=== PATIENT | male | born 1950 | race Caucasian/White ===

== ENCOUNTER 2016-10-17 07:27 | Outpatient (CLI) | payer MEDICARE ==
[~2016-10-17] VITALS: Ht 177.8 cm; Wt 78.6 kg
[2016-10-17 08:04] LABS: BASOPHILS 0.1 % (0.0-2.0); EOSINOPHILS 0.3 % (0-7); HEMATOCRIT 26.9 % (42.0-54.0); HEMOGLOBIN 8.2 g/dL (13.5-17.5); IMMATURE GRANULOCYTES 0.3 % (0-5); LYMPHOCYTES 4.9 % (15-50); MCH 21.2 pg (26.0-34.0); MCHC 30.5 g/dL (31.0-37.0); MCV 69.5 fL (80.0-100.0); MEAN PLATELET VOLUME 9.3 fL (7.4-10.4); MONOCYTES 11.3 % (2-11); NEUTROPHILS 83.1 % (40-80); PLATELET COUNT 594 10x3/uL (130-400); RBC 3.87 10x6/uL (4.20-6.10); RDW 18.2 % (11.5-14.5); WBC 13.1 10x3/uL (4.8-10.8)
[2016-10-17 08:17] LABS: APTT 35.4 SECONDS (22.8-39.4); INR 1.18 (0.85-1.17); PROTIME 14.9 SECONDS (11.6-15.0)
[2016-10-17 08:18] VITALS: BP 119/73; Ht 177.8 cm; Wt 78.6 kg
[2016-10-17 08:18] LABS: CALC OSMOLALITY 258 mosm/kg (275-300); CALCIUM 9.5 mg/dL (8.5-10.1); CARBON DIOXIDE 28.4 mmol/L (21.0-32.0); CHLORIDE - SERUM 90 mmol/L (98-107); CREATININE - SERUM 0.9 mg/dL (0.6-1.3); GLUCOSE 109 mg/dL (74-106); POTASSIUM - SERUM 3.7 mmol/L (3.5-5.1); SODIUM 128 mmol/L (136-145); UREA NITROGEN 15 mg/dL (7-18); eGFR NON AFRICAN AMERICAN 89 mL/min (90-120)
--- NOTE | 2016-10-17 11:17 | NUR ---
1100 BACK FROM LIVER BIOPSY. RT ABDOMEN DRESSING C/D/I NO BLEEDING. EXPLAIND RISK FOR BLEEDING. EXPLAINED NEEDS 2 UNITS OF BLOOD AND TOLD S/S OF BLOOD REACTIONS AND SHEET GIVEN ON BLOOD TRANSFUSION REACTION.
--- NOTE | 2016-10-17 11:42 | NUR ---
113O CALLED TO SEE IF BLOOD IS READY NOT YET.
--- NOTE | 2016-10-17 12:59 | NUR ---
1215 BLOOD CHECKED WITH 2 NURSES SWITCHED IV TO N/S IV RT ARM NO REDNESS OR SWELLING. SLEEPY FROM [facility].
--- NOTE | 2016-10-17 13:22 | NUR ---
1300 TOLERATING BLOOD WITHOUT S/S OF BLOOD REACTIONS NOTED IV RT ARM NO REDNESS OR SWELLING.
--- NOTE | 2016-10-17 15:17 | NUR ---
1400 RT ABDOMEN DRESSING C/D/I NO BLEEDING. BLOOD INFUSING WITHOUT S/S OF ADVERSE EFFECTS.
--- NOTE | 2016-10-17 15:17 | NUR ---
1445 RT ABDOMEN DRESSING C/D/I NO BLEEDING. 1ST UNIT OF BLOOD COMPLETED FLUSHED WITH NORMAL SALINE.
--- NOTE | 2016-10-17 18:33 | NUR ---
8827 2ND UNIT OF BLOOD CHECKED BY 2 RNS RT ARM IV SITE NO REDNESS OR SWELLING. BLOOD HUNG WITH NEW TUBING AND STARTED.
--- NOTE | 2016-10-17 18:35 | NUR ---
1530 BLOOD INFUSING WITHOUT S/S OF BLOOD REACTIONS NOTED TOLERATED LUNCH.
--- NOTE | 2016-10-17 18:36 | NUR ---
1700 2ND UNIT OG BLOOD COMPLETED AND NO S/S OF BLOOD REACTIONS IV NO REDNESS OR SWELLING RT ARM, RT ABDOMEN DRESSING C/D/I NO BLEEDING.
--- NOTE | 2016-10-17 18:36 | NUR ---
1615 TOLERATING BLOOD WITHOUT S/S OF BLOOD REACTIONS NOTED.
--- NOTE | 2016-10-17 18:37 | NUR ---
1705 N/S FLUSHING VIA RT ARM NO S/S OF BLOOD REACTIONS NOTED.
--- NOTE | 2016-10-17 18:38 | NUR ---
1755 WENT OVER DISCHARGE INSTRUCTIONS BLOOD REACTION SHEET REVIEWED TO KEEP RED BAND ON X 72 HOURS.REVIEWED LIVER BIOPSY INSTRUCTION SHEET.
--- NOTE | 2016-10-17 18:38 | NUR ---
1745 IVDCD CATHETER INTACT UP WITH ASSISTANCE AND VOIDED.
--- NOTE | 2016-10-17 18:40 | NUR ---
8511 PAIN SOME BETTER A 3 ASSISTED IN CAR WITH BROTHER VIA W/C.
--- NOTE | 2016-10-17 18:48 | NUR ---
1845 LAB ORDERED FOR CBC.
[2016-10-17 19:37] LABS: BASOPHILS 0.1 % (0.0-2.0); EOSINOPHILS 0.2 % (0-7); HEMATOCRIT 29.7 % (42.0-54.0); HEMOGLOBIN 9.4 g/dL (13.5-17.5); IMMATURE GRANULOCYTES 0.2 % (0-5); LYMPHOCYTES 3.2 % (15-50); MCH 22.7 pg (26.0-34.0); MCHC 31.6 g/dL (31.0-37.0); MEAN PLATELET VOLUME 9.5 fL (7.4-10.4); MONOCYTES 12.3 % (2-11); PLATELET COUNT 551 10x3/uL (130-400); RBC 4.15 10x6/uL (4.20-6.10); RDW 18.7 % (11.5-14.5)
--- NOTE | 2016-10-17 19:37 | NUR ---
193 BLOOD OBTAINED AND PATIENT TO HOME VIA W/C WITH BROTHER.
[2016-10-17 19:41] LABS: MCV 71.6 fL (80.0-100.0)
== END 2016-10-17 19:35 | disposition home or self-care (01) ==
LOC: D.OPS 07:27 → D.SP 10:00 → D.OPS 19:35
PROVIDERS: Family Medicine; Radiology Diagnostic Radiology
DX: C78.7 Secondary malignant neoplasm of liver and intrahepatic bile duct (principal)

== ENCOUNTER 2016-11-06 14:57 | Inpatient (IN) | payer MEDICARE ==
[~2016-11-06] VITALS: Ht 177.8 cm; Wt 73.5 kg
--- NOTE | 2016-11-06 15:15 | NUR ---
RECD TO ROOM 2227 VIA W/CFROM ADMISSIONS COLOR PALE SKIN WARM AND DRY RESP EVEN AND UNLABORED AT PRESENT DENIES ANY NEEDS AT THIS TIME.PLAN OF CARE GONE OVER WITH FAMILY.
[2016-11-06] MEDS ORDERED: ENULOSE10 G/15 ML PO (15:47)
[2016-11-06] MEDS ORDERED: COLACE100 MG PO (15:48)
[2016-11-06] MEDS ORDERED: ZOFRAN8 MG PO (15:49)
[2016-11-06] MEDS ORDERED: LEVAQUIN500 MG PO (15:49)
--- NOTE | 2016-11-06 16:00 | NUR ---
LIP ACCESSED IN ST MANNER BLOOD CULTERS TIMES [address] MANNER LEONARDO WELL .
[2016-11-06 16:32] VITALS: BP 107/81
[2016-11-06 16:40] LABS: BASOPHILS 0 % (0.0-2.0); EOSINOPHILS 0 % (0-7); HEMATOCRIT 28.3 % (42.0-54.0); HEMOGLOBIN 8.8 g/dL (13.5-17.5); IMMATURE GRANULOCYTES 0.1 % (0-5); LYMPHOCYTES 6.2 % (15-50); MCH 21.8 pg (26.0-34.0); MCHC 31.1 g/dL (31.0-37.0); MCV 70.2 fL (80.0-100.0); MONOCYTES 5.3 % (2-11); NEUTROPHILS 88.4 % (40-80); RBC 4.03 10x6/uL (4.20-6.10); RDW 21.6 % (11.5-14.5); WBC 6.8 10x3/uL (4.8-10.8)
[2016-11-06 16:43] LABS: PLATELET COUNT 134 10x3/uL (130-400)
--- NOTE | 2016-11-06 17:00 | NUR ---
QUIET IN ROOM FAMILY AT BEDSIDE.
[2016-11-06 17:03] LABS: ALBUMIN 1.9 g/dL (3.4-5.0); ALKALINE PHOSPHATASE 375 U/L (46-116); ALT (SGPT) 21 U/L (10-68); BILIRUBIN - TOTAL 1.19 mg/dL (0.2-1.3); CALC OSMOLALITY 262 mosm/kg (275-300); CALCIUM 8.4 mg/dL (8.5-10.1); CHLORIDE - SERUM 92 mmol/L (98-107); CREATININE - SERUM 0.7 mg/dL (0.6-1.3); GLUCOSE 135 mg/dL (74-106); POTASSIUM - SERUM 3.3 mmol/L (3.5-5.1); PROTEIN - SERUM 5.5 g/dL (6.4-8.2); SODIUM 130 mmol/L (136-145); UREA NITROGEN 13 mg/dL (7-18); eGFR NON AFRICAN AMERICAN > 90 mL/min (90-120)
[2016-11-06 17:04] LABS: LDH 488 U/L (85-227)
--- NOTE | 2016-11-06 18:28 | NUR ---
FAMILY AT BEDSIDE AT PRESENT.
[2016-11-06 19:00] VITALS: BP 106/75
--- NOTE | 2016-11-06 20:00 | NUR ---
2ND UNIT OF BLOOD STARTED INFUSING, TOLERATING WELL, DENIES NEEDS, CL IN REACH
[2016-11-06 21:02] VITALS: BP 107/81; BMI 23.2
--- NOTE | 2016-11-07 00:46 | NUR ---
ASSESSED AT THE BEGINNING OF THE SHIFT. PT IS ALERT AND ORIENTED BUT IS VERY DEAF AND YOU HAVE TO TALK SLOW IN HIS VIEW SO THAT HE CAN READ YOUR LIPS OR WRITE WHAT HE WANTS ON PAPER. HE HAS A URINAL AT THE BEDSIDE THAT HE USES AND WE KEEP EMPTY. THER IS A LEFT PORT FOR INFUSING FLUIDS ORDERED. NO COMPLAINTS NOTED AND HE HAS BEEN SHOWN HOW TO CONTACT THE NURSES AND HAS USED IT. THE BED IS LOW, RAILS UP X'S 2 WITH THE CALL LIGHT AT HAND.
[2016-11-07 04:00] VITALS: BP 105/70
--- NOTE | 2016-11-07 08:00 | NUR ---
AWAKE AND ALERT. ORIENTED X3. LUNGS ARE CLEAR BILATERALLY, NO COUGH NOTED. SKIN IS INTACT WITHOUT REDNESS. FAMILY IN ROOM. PATIENT IS DEAF AND DOES WELL WITH SIGN AND MIMICING. LEFT PORT PATENT WITHOUT REDNESS AT INSERTION SITE. SITTING UP IN BED EATING BREAKFAST.
[2016-11-07 08:46] VITALS: BP 120/79
--- NOTE | 2016-11-07 10:00 | NUR ---
FAMILY AT BEDSIDE. RESTING QUIETLY WITH EYES CLOSED.
[2016-11-07 11:30] VITALS: BP 110/78
--- NOTE | 2016-11-07 12:30 | NUR ---
CARISA SERVED IN ROOM. FEEDS SELF WITHOUT DIFFICULTY. DENIES NEEDS.
[2016-11-07 13:18] VITALS: Ht 177.8 cm; Wt 73.5 kg
[2016-11-07 16:03] VITALS: BP 117/72
--- NOTE | 2016-11-07 18:12 | NUR ---
REFUSED TO EAT SUPPER TRAY. ALTERNATIVE TRAY ORDERED. WILL MONITOR. NO CHANGES AT THIS TIME. DENIES NEEDS.
[2016-11-07 20:00] VITALS: BP 113/72
--- NOTE | 2016-11-07 22:25 | NUR ---
PATIENT RESTING IN BED WITH EYES CLOSED. NO SIGNS OF DISTRESS NOTED. SCHEDULED MED GIVEN. SHIFT ASSESSMENT COMPLETED. DENIES ANY NEEDS AT THIS TIME. BED LOW CALL LIGHT IN REACH
[2016-11-08] VITALS: BP 109/70
[2016-11-08 04:00] VITALS: BP 105/71
[2016-11-08 05:36] LABS: BASOPHILS 0 % (0.0-2.0); EOSINOPHILS 0.3 % (0-7); HEMATOCRIT 26.8 % (42.0-54.0); HEMOGLOBIN 8.5 g/dL (13.5-17.5); IMMATURE GRANULOCYTES 0.2 % (0-5); LYMPHOCYTES 11.1 % (15-50); MCHC 31.7 g/dL (31.0-37.0); MCV 69.4 fL (80.0-100.0); MONOCYTES 7.4 % (2-11); PLATELET COUNT 152 10x3/uL (130-400); RBC 3.86 10x6/uL (4.20-6.10); WBC 5.8 10x3/uL (4.8-10.8)
--- NOTE | 2016-11-08 06:19 | NUR ---
PT IS ASLEEP WITH EASY RESPIRATIONS AND NO DISTRESS NOTED. HE HAS BEEN ASSISTED UP TO THE BATHROOM TO VOID AND BACK TO BED. THE BED IS LOW, RAILS UP X'S 2 WITH THE CALL LIGHT AT HAND.
[2016-11-08 06:43] LABS: CALC OSMOLALITY 252 mosm/kg (275-300); CALCIUM 8.2 mg/dL (8.5-10.1); CHLORIDE - SERUM 90 mmol/L (98-107); CREATININE - SERUM 0.8 mg/dL (0.6-1.3); GLUCOSE 97 mg/dL (74-106); SODIUM 126 mmol/L (136-145); UREA NITROGEN 12 mg/dL (7-18); eGFR NON AFRICAN AMERICAN > 90 mL/min (90-120)
--- NOTE | 2016-11-08 07:30 | NUR ---
RECIEVED PT DURING WALKING ROUNDS. PT RESTING COMFORTABLY IN BED WITH NO COMPLAINTS OF PAIN OR DISCOMFORT AT THIS TIME. COMMUNICATED WITH PT VIA PEN AND PAPER. INFORMED PT THAT URINE SAMPLE WAS NEEDED. ASSESSMENT DONE PER FLOWSHEET. BED IN LOW POSITION AND CALL LIGHT WITHIN REACH. WILL CONTINUE TO MONITOR.
[2016-11-08 07:40] VITALS: BP 110/73
--- NOTE | 2016-11-08 08:53 | NUR ---
AWAKE AND ALERT. SITTING UP IN BED EATING BREAKFAST. FAMILY AT BEDSIDE. LUNGS ARE CLEAR BILATERLLY, NO COUGH NOTED. SKIN IS INTACT WITHOUT REDNESS. LEFT PORT PATENT WITHOUT REDNESS AT INSERTION SITE. DENIES NEEDS.
--- NOTE | 2016-11-08 09:40 | NUR ---
VISITORS AT BEDSIDE, PT HAS NO COMPLAINTS AT THIS TIME. BED IN LOW POSITION AND CALL LIGHT WITHIN REACH. WILL CONTINUE TO MONITOR.
[2016-11-08 12:12] VITALS: BP 114/79
[2016-11-08 13:20] LABS: CREATININE - URINE 88.6 mg/dL (30-125); POTASSIUM - URINE 46.8 MMOL/L (12.0-62.0)
--- NOTE | 2016-11-08 13:32 | NUR ---
Patient Name: YOKASTA MEJIA Admission Status: Urgent Accout number: [id number] Admission Date: 11-06-2016 : 1950 Admission Diagnosis:BACTEREMIA Attending: PAPA Current LOS: 2 Anticipated DC Date: 11-11-2016 Planned Disposition: Home Primary Insurance: MEDICARE A & B Discharge Planning Comments: CM MET WITH PATIENTS SISTER IN LAW (PASHA MEJIA) REGARDING D/C NEEDS AND PLANS. PATIENT WILL GO HOME WITH HIS BROTHER AND SISTER IN LAW IF NEEDED AT DISCHARGE PER PASHA. THERE ARE NO STEPS OR STAIRS AT THEIR HOME. PATIENT IS INDEPENDENT WITH HIS CARE AND HAS NO DME AT HOME. PATIENTS PCP IS DR. JOHN AND USES [facility]. SISTER IN STATED THEY WILL WAIT AND SEE WHAT DOCTOR THINKS HE MIGHT NEED AT DISCHARGE. SHE STATED IF HE NEEDS HOME HEALTH THEN WE WILL GET IT. CM WILL CONTINUE TO FOLLOW PATIENT WITH D/C NEEDS AND PLANS. PCP DR. JOHN [facility]- [phone] PASHA MEJIA (SISTER IN LAW) [phone] Mason Foreman/Superintendant: Aliza Farmer How many steps to enter\exit or inside your home? 0 0 * PCP DR. JOHN 0 * Pharmacy [facility] 0 * Preadmission Environment Home Alone 0 * ADLs Independent 0 * Equipment None 0 * List name and contact numbers for known caregivers / representatives who currently or will assist patient after discharge: PASHA MEJIA [phone] * Community resources currently utilized None 0 * Additional services required to return to the preadmission environment? Yes 0 * Can the patient safely return to the preadmission environment? Yes 0 * Has this patient been hospitalized within the prior 30 days at any hospital? No 0 Grand Total: 0
[2016-11-08 15:23] VITALS: BP 121/83
--- NOTE | 2016-11-08 15:40 | NUR ---
DRESSING CHANGED TO LEFT CHEST PORT AT THIS TIME DUE TO PREVIOUS DRESSING COMING OFF. DRESSING CHANGED USING STERILE TECHNIQUE. BED IN LOW POSITION AND CALL LIGHT WITHIN REACH. WILL CONTINUE TO MONITOR.
--- NOTE | 2016-11-08 19:25 | NUR ---
PT LYING IN BED WATCHING TV, ASSESSMENT COMPLETED, NO ACUTE DISTRESS NOTED, DENIES NEEDS EXCEPT ICE WATER WHICH WAS PROVIDED, FALL PRECAUTIONS IN PLACE, CL IN REACH, WILL MONITOR
[2016-11-08 20:00] VITALS: BP 111/73
--- NOTE | 2016-11-08 20:13 | NUR ---
MEDS GIVEN PER MAR, LEONARDO WELL, DENIES NEEDS, CL IN REACH
--- NOTE | 2016-11-08 22:35 | NUR ---
CARON CANTU PER CHRISS, LEONARDO WELL, CL IN REACH
--- NOTE | 2016-11-08 23:14 | NUR ---
RESTING WITH EYES CLOSED, RESP WITH EASE, NO DISTRESS NOTED, SR'S UP, CL IN REACH
[2016-11-09] VITALS (20 sets, daily range): BP systolic 99–117; BP diastolic 67–78
--- NOTE | 2016-11-09 01:21 | NUR ---
BEBETO HUNG PER MAR, LEONARDO WELL, NO NEEDS NOTED, CL IN REACH
[2016-11-09 06:38] LABS: MCH 22.2 pg (26.0-34.0); MCHC 31.5 g/dL (31.0-37.0); MCV 70.5 fL (80.0-100.0); PLATELET COUNT 167 10x3/uL (130-400); RDW 22.3 % (11.5-14.5)
--- NOTE | 2016-11-09 07:00 | NUR ---
PT REC'D FROM LORRI CROOK. PT RESTING IN BED WITH EYES CLOSED. NO SIGNS OF DISTRESS. RESP EVEN AND UNLABORED. BED LOW, CALL LIGHT IN REACH, DENIES NEEDS. CPOC.
[2016-11-09 07:04] LABS: ALBUMIN 1.5 g/dL (3.4-5.0); ALKALINE PHOSPHATASE 280 U/L (46-116); ALT (SGPT) 14 U/L (10-68); BILIRUBIN - TOTAL 1.02 mg/dL (0.2-1.3); CALC OSMOLALITY 260 mosm/kg (275-300); CALCIUM 7.8 mg/dL (8.5-10.1); CARBON DIOXIDE 30.1 mmol/L (21.0-32.0); CHLORIDE - SERUM 94 mmol/L (98-107); CREATININE - SERUM 0.6 mg/dL (0.6-1.3); GLUCOSE 113 mg/dL (74-106); PROTEIN - SERUM 5.1 g/dL (6.4-8.2); SODIUM 130 mmol/L (136-145); UREA NITROGEN 9 mg/dL (7-18); eGFR NON AFRICAN AMERICAN > 90 mL/min (90-120)
[2016-11-09 07:05] LABS: RBC 3.02 10x6/uL (4.20-6.10); WBC 4.1 10x3/uL (4.8-10.8)
[2016-11-09 07:08] LABS: HEMATOCRIT 21.3 % (42.0-54.0); HEMOGLOBIN 6.7 g/dL (13.5-17.5); POTASSIUM - SERUM 2.8 mmol/L (3.5-5.1)
[2016-11-09 08:16] LABS: LYMPHOCYTES 16 % (15-50); MONOCYTES 3 % (2-11); NEUTROPHILS 81 % (40-80); PLATELET ESTIMATE NORMAL
--- NOTE | 2016-11-09 09:05 | NUR ---
MORNING MEDS PASSED AT THIS TIME. FIRST BAG OF POTASSIUM RIDER STARTED. AAOX4. PT WAS ABLE TO MOUTH SOME SMALL WORDS. NO COMPLAINTS OF PAIN. BED LOW, CALL LIGHT IN REACH, DENIES NEEEDS. CPOC.
--- NOTE | 2016-11-09 10:06 | NUR ---
2ND BAG OF POTASSIUM RIDER STARTED. PT RESTING IN BED WITH FAMILY IN ROOM. DENIES NEEDS.
--- NOTE | 2016-11-09 12:15 | NUR ---
QUIET IN ROOM N/C FAMILY AT BEDSIDE DENIES ANY NEEDS AT PRESENT.
--- NOTE | 2016-11-09 16:44 | NUR ---
FIRST UNIT OF BLOOD WAS NOT GIVEN. PT STILL HAD IV ABX GOING AND WAS WAITING FOR IT TO FINISH. IV ABX TOOK TOO LONG TO FINISH AND BLOOD SAT OUT FOR LONGER THAN 30 MINUTES. BLOOD RETURNED TO THE LAB AND NEW UNIT PICKED UP. WILL TRANSFUSE AND PUT IN NEW ORDER TO TRANSFUSE ANOTHER UNIT OF BLOOD.
--- NOTE | 2016-11-09 17:05 | NUR ---
FIRST UNIT OF BLOOD INFUSING NOW TO L CHEST PORT. NO REACTION NOTED. VSS.
--- NOTE | 2016-11-09 17:58 | NUR ---
PT TOLERATING BLOOD TRANSFUSION WELL. VSS. APPORXIMATELY 150CC'S LEFT IN BAG.
--- NOTE | 2016-11-09 19:40 | NUR ---
ASSESSMENT COMPLETED, NO ACUTE DISTRESS NOTED, DENIES PAIN OR NEEDS AT THIS TIME, FALL PRECAUTIONS IN PLACE, CL IN REACH, WILL MONITOR
--- NOTE | 2016-11-09 20:00 | NUR ---
2ND UNIT OF BLOOD STARTED INFUSING, WILL MONITOR FOR RX
--- NOTE | 2016-11-09 20:15 | NUR ---
NO SS OF RX FROM BLOOD NOTED, DENIES PAIN, SOB, ITCHING OR ANY OTHER DISCOMFORT NOTED, CL IN REACH, WILL CONTINUE TO MONITOR
--- NOTE | 2016-11-09 21:15 | NUR ---
BLOOD CONTINUES TO INFUSE WITH NO SS OF RX NOTED, PT DENIES DISCOMFORT OR NEEDS, CL IN REACH
--- NOTE | 2016-11-09 22:45 | NUR ---
BLOOD INFUSION COMPLETED, PT DENIES NEEDS, CL IN REACH
--- NOTE | 2016-11-09 23:02 | NUR ---
CARON CANTU PER CHRISS, LEONARDO WELL, DENIES NEEDS, CL IN REACH
[2016-11-10] VITALS: BP 110/78; BP 165/83
--- NOTE | 2016-11-10 01:30 | NUR ---
RESTING WITH EYES CLOSED, RESP WITH EASE, NO DISTRESS NOTED, CL IN REACH
[2016-11-10 04:00] VITALS: BP 105/76
[2016-11-10 06:38] LABS: BASOPHILS 0 % (0.0-2.0); EOSINOPHILS 2.1 % (0-7); HEMATOCRIT 26.7 % (42.0-54.0); HEMOGLOBIN 8.7 g/dL (13.5-17.5); IMMATURE GRANULOCYTES 0.3 % (0-5); MCH 23.7 pg (26.0-34.0); MCHC 32.6 g/dL (31.0-37.0); MCV 72.8 fL (80.0-100.0); MEAN PLATELET VOLUME 9.3 fL (7.4-10.4); MONOCYTES 20.8 % (2-11); NEUTROPHILS 59.8 % (40-80); PLATELET COUNT 179 10x3/uL (130-400); RBC 3.67 10x6/uL (4.20-6.10); RDW 22.6 % (11.5-14.5); WBC 2.9 10x3/uL (4.8-10.8)
[2016-11-10 06:59] LABS: ALBUMIN 1.5 g/dL (3.4-5.0); ALKALINE PHOSPHATASE 268 U/L (46-116); ALT (SGPT) 13 U/L (10-68); BILIRUBIN - TOTAL 1.74 mg/dL (0.2-1.3); CALC OSMOLALITY 256 mosm/kg (275-300); CALCIUM 7.6 mg/dL (8.5-10.1); CARBON DIOXIDE 28.1 mmol/L (21.0-32.0); CHLORIDE - SERUM 93 mmol/L (98-107); CREATININE - SERUM 0.5 mg/dL (0.6-1.3); GLUCOSE 100 mg/dL (74-106); POTASSIUM - SERUM 2.6 mmol/L (3.5-5.1); PROTEIN - SERUM 5.1 g/dL (6.4-8.2); SODIUM 129 mmol/L (136-145); UREA NITROGEN 8 mg/dL (7-18); eGFR NON AFRICAN AMERICAN > 90 mL/min (90-120)
[2016-11-10 08:35] VITALS: BP 129/83
[2016-11-10 11:23] VITALS: BP 110/77
--- NOTE | 2016-11-10 12:24 | NUR ---
COMPLETE BED BATH AND LINEN CHANGE DONE. ASSISTED PT BACK TO BED. FAMILY AT BEDSIDE. BED LOW, CALL LIGHT IN REACH. CPOC.
--- NOTE | 2016-11-10 12:54 | NUR ---
POTASSIUM SERUM DRAWN FROM L CHEST PORT. SENT TO LAB.
[2016-11-10 15:50] VITALS: BP 114/76
[2016-11-10 19:00] VITALS: BP 106/75
--- NOTE | 2016-11-10 19:53 | NUR ---
ASSESSMENT COMPLETED, NO ACUTE DISTRESS NOTED, IV TO L CHEST INFUSING WITH EASE, FALL PRECAUTIONS IN PLACE, CL IN REACH, WILL MONITOR
--- NOTE | 2016-11-10 22:31 | NUR ---
MEDS GIVEN PER MAR, LEONARDO WELL, CL IN REACH
--- NOTE | 2016-11-10 23:20 | NUR ---
RESTING WITH EYES CLOSED, RESP WITH EASE, NO DISTRESS NOTED, SR'S UP, CL IN REACH
--- NOTE | 2016-11-11 01:15 | NUR ---
RESTING WITH EYES CLOSED, RESP WITH EASE, NO DISTRESS NOTED, CL IN REACH
[2016-11-11 04:00] VITALS: BP 102/69
[2016-11-11 04:40] LABS: HEMATOCRIT 27.7 % (42.0-54.0); HEMOGLOBIN 9.2 g/dL (13.5-17.5); MCH 24.2 pg (26.0-34.0); MCHC 33.2 g/dL (31.0-37.0); MCV 72.9 fL (80.0-100.0); MEAN PLATELET VOLUME 9.4 fL (7.4-10.4); PLATELET COUNT 203 10x3/uL (130-400); RDW 22.9 % (11.5-14.5); WBC 2.4 10x3/uL (4.8-10.8)
[2016-11-11 05:03] LABS: ALBUMIN 1.5 g/dL (3.4-5.0); ALKALINE PHOSPHATASE 255 U/L (46-116); ALT (SGPT) 11 U/L (10-68); BILIRUBIN - TOTAL 1.24 mg/dL (0.2-1.3); CALC OSMOLALITY 256 mosm/kg (275-300); CALCIUM 7.9 mg/dL (8.5-10.1); CARBON DIOXIDE 27.6 mmol/L (21.0-32.0); CHLORIDE - SERUM 94 mmol/L (98-107); CREATININE - SERUM 0.6 mg/dL (0.6-1.3); GLUCOSE 104 mg/dL (74-106); PROTEIN - SERUM 5.2 g/dL (6.4-8.2); SODIUM 129 mmol/L (136-145); UREA NITROGEN 7 mg/dL (7-18); eGFR NON AFRICAN AMERICAN > 90 mL/min (90-120)
[2016-11-11 05:05] LABS: POTASSIUM - SERUM 2.8 mmol/L (3.5-5.1)
[2016-11-11 05:33] LABS: EOSINOPHILS 4 % (0-7); LYMPHOCYTES 20 % (15-50); MONOCYTES 16 % (2-11); NEUTROPHILS 52 % (40-80); PLATELET ESTIMATE NORMAL; PLATELET MORPHOLOGY GIANT PLTS PRESENT; ROULEAUX 1+
--- NOTE | 2016-11-11 07:40 | NUR ---
RESTING QUIETLY, EASILY AROUSED, DENIES NEEDS, PEN AND PAPER AT BEDSIDE, CALL LIGHT IN REACH, BED LOWEST POSITION, WILL CONTINUE TO MONITOR
--- NOTE | 2016-11-11 07:52 | NUR ---
PATIENT IN LOW MALLOY POSITION RESTING QUIETLY. RESPIRATIONS EVEN AND UNLABORED. LAWANDA, NURSE AID AT BEDSIDE. SIDE RAILS UP X2. BED IN LOW POSITION. CALL LIGHT IN REACH.
[2016-11-11 08:09] VITALS: BP 102/70
[2016-11-11 11:40] VITALS: BP 108/79
--- NOTE | 2016-11-11 14:52 | NUR ---
NUTRITION MONITORING & EVAL CHART REVIEWED. PT VISIT. 25% INTAKE BREAKFAST. PT INDICATED GOOD INTAKE LUNCH. WILL CONTINUE TO PROVIDE DIET, HONOR FOOD PREFERENCES. RD FOLLOWING
[2016-11-11 15:32] VITALS: BP 106/69
--- NOTE | 2016-11-11 19:58 | NUR ---
PT LYING IN BED WATCHING TV, ASSESSMENT COMPLETED, NO DISTRESS NOTED, DENIES PAIN OR NEEDS, FALL PRECAUTIONS IN PLACE, CL IN REACH, WILL MONITOR
--- NOTE | 2016-11-11 21:34 | NUR ---
MEDS GIVEN PER MAR, LEONARDO WELL, CL IN REACH
--- NOTE | 2016-11-11 23:33 | NUR ---
RESTING WITH EYES CLOSED, RESP WITH EASE, NO DISTRESS NOTED, CL IN REACH
[2016-11-12] VITALS: BP 93/65
--- NOTE | 2016-11-12 01:12 | NUR ---
CONTINUES TO REST WITH EYES CLOSED, NO DISTRESS NOTED, CL IN REACH
--- NOTE | 2016-11-12 03:15 | NUR ---
RESTING WITH EYES CLOSED, NO DISTRESS NOTED, SR'S UP ,CL IN REACH
[2016-11-12 04:00] VITALS: BP 103/70
--- NOTE | 2016-11-12 07:30 | NUR ---
SLEEPING, EASLIY AROUSED, DENIES NEEDS, PEN AND PAPER AT BEDSIDE, ASSESSMENT COMPLETE, IRON IV GIVEN, LABS DRAWN, CALL LIGHT IN REACH, BED LOWEST POSITION, WILL CONTINUE MONITOR
[2016-11-12 08:12] VITALS: BP 110/73
[2016-11-12 08:19] LABS: FOLATE (FOLIC ACID) - SERUM 11.5 ng/mL (>3.0)
--- NOTE | 2016-11-12 09:26 | NUR ---
PT WITHOUT DISTRESS.LAB WORK BEING DRAWN PER LAB.LEFT IP WILL NOT DRAW.MINITOR FOR NEEDS
[2016-11-12 09:39] LABS: BASOPHILS 0.5 % (0.0-2.0); EOSINOPHILS 2.8 % (0-7); HEMATOCRIT 31.9 % (42.0-54.0); HEMOGLOBIN 10.2 g/dL (13.5-17.5); IMMATURE GRANULOCYTES 11.9 % (0-5); LYMPHOCYTES 20.6 % (15-50); MCH 23.6 pg (26.0-34.0); MCV 73.8 fL (80.0-100.0); MEAN PLATELET VOLUME 9.2 fL (7.4-10.4); MONOCYTES 31.2 % (2-11); PLATELET COUNT 178 10x3/uL (130-400); RBC 4.32 10x6/uL (4.20-6.10); RDW 23.5 % (11.5-14.5); WBC 2.2 10x3/uL (4.8-10.8)
[2016-11-12 09:50] LABS: CALC OSMOLALITY 259 mosm/kg (275-300); CALCIUM 8.3 mg/dL (8.5-10.1); CARBON DIOXIDE 29.6 mmol/L (21.0-32.0); CHLORIDE - SERUM 93 mmol/L (98-107); CREATININE - SERUM 0.6 mg/dL (0.6-1.3); GLUCOSE 124 mg/dL (74-106); SODIUM 130 mmol/L (136-145); UREA NITROGEN 8 mg/dL (7-18); eGFR NON AFRICAN AMERICAN > 90 mL/min (90-120)
--- NOTE | 2016-11-12 11:17 | NUR ---
WOUND CARE CONSULT: NO CHRONIC WOUNDS NOTED
[2016-11-12 11:50] VITALS: BP 103/68
[2016-11-12] MEDS ORDERED: FLAGYL500 MG PO (13:16)
[2016-11-12] MEDS ORDERED: K-DUR20 MEQ PO (13:17)
--- NOTE | 2016-11-12 13:32 | NUR ---
CM REASSESSMENT NOTE: PATIENT IS DISCHARGING HOME WITH HIS BROTHER (MONET MEJIA). PATIENTS BROTHER DENIED HOME HEALTH AND HAD NO OTHER NEEDS FOR DISCHARGE.
--- NOTE | 2016-11-12 14:16 | NUR ---
DISCHARGE PAPERS AND INSTRUCTIONS GIVEN, QUESTIONS ANSWERED, DISCHARGED PER WC WITH BELONGINGS
[2016-11-17 14:08] LABS: AEROBE ID Final report (())
== END 2016-11-12 14:18 | disposition home or self-care (01) | DRG 872 ==
LOC: D.MS 14:57
PROVIDERS: Internal Medicine Hematology & Oncology; Student in an Organized Health Care Education/Training Program; ADMIT Internal Medicine Hematology & Oncology
DX: A41.89 Other specified sepsis (principal); C18.4 Malignant neoplasm of transverse colon; C78.7 Secondary malignant neoplasm of liver and intrahepatic bile duct; C79.51 Secondary malignant neoplasm of bone; E46 Unspecified protein-calorie malnutrition; E87.1 Hypo-osmolality and hyponatremia; Z68.23 Body mass index [BMI] 23.0-23.9, adult; B96.6 Bacteroides fragilis [B. fragilis] as the cause of diseases classified elsewhere; H91.90 Unspecified hearing loss, unspecified ear; F32.9 Major depressive disorder, single episode, unspecified; K59.00 Constipation, unspecified; E87.6 Hypokalemia; D50.0 Iron deficiency anemia secondary to blood loss (chronic)

== ENCOUNTER 2017-09-09 15:15 | Inpatient (IN) | payer MEDICARE ==
[~2017-09-09] VITALS: Ht 177.8 cm; Wt 59.9 kg
--- NOTE | ~2017-09-09 | HP ---
PATIENT: YOKASTA DE LA O JR MEDICAL RECORD: [id number] ACCOUNT: [id number] LOCATION:[id number] : 46 ADMISSION DATE: 09/09/17 HISTORY AND PHYSICAL EXAMINATION CHIEF COMPLAINT: Diarrhea, weakness, fatigue, weight loss. HISTORY OF PRESENT ILLNESS: Mr. De La O is a 67-year-old gentleman with history of metastatic colorectal cancer. He received Camptosar, Avastin, and Xeloda on 08/26/2017 as ongoing treatment. He has been responding quite well to treatment as indicated by a following CEA from 900 down to 71 currently. However, after his last treatment, he has developed anorexia, fatigue, and severe diarrhea. His weight is down approximately 18 pounds over the past 2 weeks. He was given IV hydration, potassium, and magnesium in clinic and admitted directly to the hospital. PAST MEDICAL AND SURGICAL HISTORY: 1. Stage IV colorectal cancer. 2. Prior port placement. 3. Deaf. 4. Appendectomy. SOCIAL HISTORY: He lives alone in [place]. He has a brother who is a preacher, who assists with his care but is currently out of the country on vacation. FAMILY HISTORY: Hypertension and heart disease. ALLERGIES: No known drug allergies. CURRENT MEDICATIONS: Include Megace and Zofran. REVIEW OF SYSTEMS: Significant for weight loss, loss of appetite, and diarrhea. Other review of systems have been reviewed and are unremarkable. PHYSICAL EXAMINATION: VITAL SIGNS: ECOG of 1. His weight is down 18 pounds at 132. Temperature 98.2, pulse 78, respiratory rate 18, blood pressure 101/76, pulse ox 96% on room air. GENERAL: Pleasant gentleman, appearing ill and cachectic. SKIN: Dry. Turgor is poor. HEENT: Sclerae are nonicteric. Mucosal membranes are dry. NECK: Neck is supple. Neck veins are flat. LUNGS: Clear bilaterally. Chest wall excursions are equal bilaterally. HEART: Regular. No murmurs, gallops, or rubs. ABDOMEN: Soft. Bowel sounds are present. There is no ascites, no rebound, no guarding, and no organomegaly. EXTREMITIES: He has distal muscle wasting. No edema. NEUROLOGIC: He is deaf. No focal neuromotor deficits. He has global weakness. PERTINENT LABS: At my office today, his CEA has fallen from 900 to 300 to currently down to 71. His white count is 5, hemoglobin 10.3, hematocrit 30.5, platelets 179. Sodium is 130, potassium 2.9, BUN and creatinine 14 and 0.5. Total bilirubin 1.3, alkaline phosphatase 316, AST 25, ALT 29. LDH 291. HISTORY AND PHYSICAL [id number] YOKASTA DE LA O JR IMPRESSION: 1. Stage IV colorectal cancer, responding to treatment as indicated by marked reduction in his CEA. 2. Chemotherapy-induced diarrhea and severe weight loss. I have recommended admission to the hospital for IV hydration, replacement of electrolytes, and antidiarrheal agents including Lomotil and octreotide. We will check stool for C. diff. We will add a probiotic as well. TRANSINT:[id number] Voice Confirmation ID: [id number] DOCUMENT ID: [id number] TAMIA CHEN MD CC: [id number] DICTATION DATE: 09/09/17 1518 FILM HISTORIAN: 09/09/17 1601 ADM IN [facility] [address] [place] [address]
[~2017-09-09 15:15] MED LIST: COLACE100 MG PO; ENULOSE10 G/15 ML PO; FLAGYL500 MG PO; K-DUR20 MEQ PO; LEVAQUIN500 MG PO; ZOFRAN8 MG PO
[2017-09-09 15:44] VITALS: BP 96/63; BMI 18.9
[2017-09-09] MEDS ORDERED: MEGACE400 MG/10 PO (16:24)
[2017-09-09 20:00] VITALS: BP 97/67
[2017-09-10 04:00] VITALS: BP 95/62
[2017-09-10 06:57] LABS: BASOPHILS 0 % (0-2); EOSINOPHILS 0 % (0-7); HEMATOCRIT 24.3 % (42.0-54.0); IMMATURE GRANULOCYTES 0.9 % (0-5); LYMPHOCYTES 9.3 % (15-50); MCHC 32.9 g/dL (31.0-37.0); MCV 97.2 fL (80.0-100.0); MEAN PLATELET VOLUME 10.5 fL (7.4-10.4); MONOCYTES 11.2 % (2-11); NEUTROPHILS 78.6 % (40-80); RDW 18.6 % (11.5-14.5); WBC 2.1 10x3/uL (4.8-10.8)
[2017-09-10 07:16] LABS: PLATELET COUNT 95 10x3/uL (130-400)
[2017-09-10 07:23] LABS: ALBUMIN 2.1 g/dL (3.4-5.0); ALKALINE PHOSPHATASE 230 U/L (46-116); ALT (SGPT) 12 U/L (10-68); BILIRUBIN - TOTAL 0.63 mg/dL (0.2-1.3); CALC OSMOLALITY 270 mosm/kg (275-300); CALCIUM 8.4 mg/dL (8.5-10.1); CARBON DIOXIDE 25.4 mmol/L (21.0-32.0); CHLORIDE - SERUM 100 mmol/L (98-107); CREATININE - SERUM 0.5 mg/dL (0.6-1.3); MAGNESIUM - SERUM 2.4 mg/dL (1.8-2.4); POTASSIUM - SERUM 3.8 mmol/L (3.5-5.1); PROTEIN - SERUM 5.1 g/dL (6.4-8.2); SODIUM 133 mmol/L (136-145); UREA NITROGEN 11 mg/dL (7-18); eGFR NON AFRICAN AMERICAN > 90 mL/min (90-120)
[2017-09-10 07:26] LABS: GLUCOSE 210 mg/dL (74-106)
[2017-09-10 08:26] VITALS: BP 92/66
[2017-09-10 11:56] VITALS: BP 99/69
[2017-09-10 12:30] VITALS: BMI 18.9
[2017-09-10 22:57] VITALS: BP 88/58
[2017-09-11] VITALS (7 sets, daily range): BP systolic 86–162; BP diastolic 55–90
[2017-09-11 20:35] LABS: HEMATOCRIT 34.3 % (42.0-54.0); HEMOGLOBIN 11.4 g/dL (13.5-17.5); MCH 32.1 pg (26.0-34.0); MCHC 33.2 g/dL (31.0-37.0); MCV 96.6 fL (80.0-100.0); MEAN PLATELET VOLUME 10.3 fL (7.4-10.4); PLATELET COUNT 93 10x3/uL (130-400); RBC 3.55 10x6/uL (4.20-6.10); WBC 26.5 10x3/uL (4.8-10.8)
[2017-09-11 20:40] LABS: ALBUMIN 2.1 g/dL (3.4-5.0); ALKALINE PHOSPHATASE 251 U/L (46-116); ALT (SGPT) 14 U/L (10-68); BILIRUBIN - TOTAL 0.82 mg/dL (0.2-1.3); CALCIUM 8.5 mg/dL (8.5-10.1); CARBON DIOXIDE 22.4 mmol/L (21.0-32.0); CHLORIDE - SERUM 106 mmol/L (98-107); POTASSIUM - SERUM 3.6 mmol/L (3.5-5.1); PROTEIN - SERUM 5.2 g/dL (6.4-8.2); SODIUM 129 mmol/L (136-145)
[2017-09-11 20:42] LABS: CALC OSMOLALITY 257 mosm/kg (275-300); CREATININE - SERUM 0.7 mg/dL (0.6-1.3); GLUCOSE 118 mg/dL (74-106); UREA NITROGEN 6 mg/dL (7-18); eGFR NON AFRICAN AMERICAN > 90 mL/min (90-120)
[2017-09-11 21:10] LABS: LYMPHOCYTES 6 % (15-50); MONOCYTES 6 % (2-11); NEUTROPHILS 88 % (40-80)
[2017-09-11 21:11] LABS: PLATELET ESTIMATE DECREASED; POIKILOCYTOSIS 1+; POLYCHROMASIA 1+
[2017-09-12 04:00] VITALS: BP 100/60
[2017-09-12 08:13] VITALS: BP 98/74
[2017-09-12 12:13] VITALS: BP 97/71
[2017-09-12 17:20] VITALS: BP 94/70
[2017-09-12 20:10] VITALS: BP 103/73
[2017-09-12 23:43] VITALS: BP 103/75
[2017-09-13 04:17] VITALS: BP 103/69
[2017-09-13 11:10] LABS: BASOPHILS 0.1 % (0-2); EOSINOPHILS 0.4 % (0-7); HEMATOCRIT 38.6 % (42.0-54.0); HEMOGLOBIN 12.5 g/dL (13.5-17.5); IMMATURE GRANULOCYTES 0.3 % (0-5); LYMPHOCYTES 7.6 % (15-50); MCH 32.1 pg (26.0-34.0); MCHC 32.4 g/dL (31.0-37.0); MEAN PLATELET VOLUME 9.8 fL (7.4-10.4); MONOCYTES 7.6 % (2-11); RDW 20.5 % (11.5-14.5); WBC 12.6 10x3/uL (4.8-10.8)
[2017-09-13 11:11] LABS: PLATELET COUNT 74 10x3/uL (130-400)
[2017-09-13 11:24] LABS: ALBUMIN 2.2 g/dL (3.4-5.0); ALKALINE PHOSPHATASE 270 U/L (46-116); ALT (SGPT) 15 U/L (10-68); BILIRUBIN - TOTAL 0.82 mg/dL (0.2-1.3); CALC OSMOLALITY 279 mosm/kg (275-300); CALCIUM 8.4 mg/dL (8.5-10.1); CARBON DIOXIDE 23.5 mmol/L (21.0-32.0); CHLORIDE - SERUM 110 mmol/L (98-107); CREATININE - SERUM 0.6 mg/dL (0.6-1.3); GLUCOSE 112 mg/dL (74-106); POTASSIUM - SERUM 4.7 mmol/L (3.5-5.1); PROTEIN - SERUM 5.2 g/dL (6.4-8.2); SODIUM 141 mmol/L (136-145); UREA NITROGEN 6 mg/dL (7-18); eGFR NON AFRICAN AMERICAN > 90 mL/min (90-120)
[2017-09-13 12:14] VITALS: BP 94/73
[2017-09-13 19:57] VITALS: BP 112/84
[2017-09-14] VITALS: BP 113/78
[2017-09-14 04:00] VITALS: BP 113/85
[2017-09-14 10:28] VITALS: BP 115/86
[2017-09-14 21:35] VITALS: BP 111/91
[2017-09-14 23:22] VITALS: BP 111/86
[2017-09-15 04:52] VITALS: BP 130/96
[2017-09-15 08:39] LABS: BASOPHILS 0.1 % (0-2); EOSINOPHILS 0.9 % (0-7); HEMOGLOBIN 11.8 g/dL (13.5-17.5); IMMATURE GRANULOCYTES 0.4 % (0-5); LYMPHOCYTES 10.5 % (15-50); MCH 32.1 pg (26.0-34.0); MCHC 32.8 g/dL (31.0-37.0); MCV 97.8 fL (80.0-100.0); MEAN PLATELET VOLUME 9.3 fL (7.4-10.4); MONOCYTES 11.5 % (2-11); NEUTROPHILS 76.6 % (40-80); PLATELET COUNT 109 10x3/uL (130-400); RBC 3.68 10x6/uL (4.20-6.10); RDW 20.2 % (11.5-14.5); WBC 10.3 10x3/uL (4.8-10.8)
[2017-09-15 08:59] LABS: ALKALINE PHOSPHATASE 249 U/L (46-116); ALT (SGPT) 15 U/L (10-68); CALC OSMOLALITY 270 mosm/kg (275-300); CALCIUM 8.3 mg/dL (8.5-10.1); CARBON DIOXIDE 23.8 mmol/L (21.0-32.0); CHLORIDE - SERUM 107 mmol/L (98-107); CREATININE - SERUM 0.6 mg/dL (0.6-1.3); GLUCOSE 108 mg/dL (74-106); MAGNESIUM - SERUM 1.9 mg/dL (1.8-2.4); PROTEIN - SERUM 5.1 g/dL (6.4-8.2); SODIUM 136 mmol/L (136-145); eGFR NON AFRICAN AMERICAN > 90 mL/min (90-120)
[2017-09-15 09:00] LABS: UREA NITROGEN 8 mg/dL (7-18)
[2017-09-15 09:22] VITALS: BP 120/94
[2017-09-15 13:50] VITALS: Ht 177.8 cm; Wt 59.9 kg
[2017-09-15 14:21] LABS: INR 1.39 (0.85-1.17); PROTIME 16.6 SECONDS (11.6-15.0)
[2017-09-15 16:48] LABS: PROTEIN - BODY FLUID 0.7 G/DL
[2017-09-15 19:16] LABS: NEUT - BF 53 %
[2017-09-15 19:17] LABS: MACROPHAGES BF 15 %; MESOTHELIALS BF 11 %
[2017-09-15 23:00] VITALS: BP 101/76
[2017-09-16 01:29] VITALS: BP 120/83
[2017-09-16 04:59] VITALS: BP 134/84
[2017-09-16 08:28] VITALS: BP 102/79
[2017-09-16 10:18] LABS: HEMOGLOBIN 11.9 g/dL (13.5-17.5); MCH 31.6 pg (26.0-34.0); MCHC 32.2 g/dL (31.0-37.0); MCV 98.1 fL (80.0-100.0); MEAN PLATELET VOLUME 9.9 fL (7.4-10.4); PLATELET COUNT 136 10x3/uL (130-400); RBC 3.77 10x6/uL (4.20-6.10); RDW 20.5 % (11.5-14.5); WBC 8.8 10x3/uL (4.8-10.8)
[2017-09-16 10:31] LABS: ALBUMIN 2.1 g/dL (3.4-5.0); ALKALINE PHOSPHATASE 246 U/L (46-116); ALT (SGPT) 12 U/L (10-68); BILIRUBIN - TOTAL 1.29 mg/dL (0.2-1.3); CALC OSMOLALITY 277 mosm/kg (275-300); CALCIUM 8.9 mg/dL (8.5-10.1); CARBON DIOXIDE 29.6 mmol/L (21.0-32.0); CHLORIDE - SERUM 102 mmol/L (98-107); CREATININE - SERUM 0.8 mg/dL (0.6-1.3); GLUCOSE 92 mg/dL (74-106); MAGNESIUM - SERUM 1.9 mg/dL (1.8-2.4); PHOSPHOROUS 4.2 mg/dL (2.5-4.9); POTASSIUM - SERUM 4.5 mmol/L (3.5-5.1); PROTEIN - SERUM 5.4 g/dL (6.4-8.2); SODIUM 138 mmol/L (136-145); TRIGLYCERIDE 73 mg/dL (30-200); UREA NITROGEN 18 mg/dL (7-18); eGFR NON AFRICAN AMERICAN > 90 mL/min (90-120)
[2017-09-16 11:19] LABS: LYMPHOCYTES 8 % (15-50); MONOCYTES 13 % (2-11); NEUTROPHILS 78 % (40-80)
[2017-09-16 11:25] LABS: PLATELET ESTIMATE NORMAL
[2017-09-16 11:26] LABS: ANISOCYTOSIS OCC
[2017-09-16 12:08] VITALS: BP 106/85
[2017-09-16 16:19] VITALS: BP 106/83
[2017-09-16 22:39] VITALS: BP 99/73
[2017-09-17 02:54] VITALS: BP 102/74
[2017-09-17 05:31] VITALS: BP 104/64
[2017-09-17 07:06] LABS: CALC OSMOLALITY 283 mosm/kg (275-300); CARBON DIOXIDE 31.3 mmol/L (21.0-32.0); CHLORIDE - SERUM 105 mmol/L (98-107); CREATININE - SERUM 0.9 mg/dL (0.6-1.3); GLUCOSE 129 mg/dL (74-106); SODIUM 140 mmol/L (136-145); UREA NITROGEN 21 mg/dL (7-18); eGFR NON AFRICAN AMERICAN 89 mL/min (90-120)
[2017-09-17 07:07] LABS: MAGNESIUM - SERUM 2.4 mg/dL (1.8-2.4)
[2017-09-17 07:57] VITALS: BP 106/78
[2017-09-17 12:30] VITALS: BP 98/74
[2017-09-17 16:28] VITALS: BP 110/74
[2017-09-17 23:32] VITALS: BP 102/74
[2017-09-18 04:00] VITALS: BP 170/79
[2017-09-18 06:19] LABS: CALC OSMOLALITY 278 mosm/kg (275-300); CALCIUM 8.4 mg/dL (8.5-10.1); CARBON DIOXIDE 28.5 mmol/L (21.0-32.0); CHLORIDE - SERUM 104 mmol/L (98-107); CREATININE - SERUM 0.7 mg/dL (0.6-1.3); GLUCOSE 111 mg/dL (74-106); MAGNESIUM - SERUM 1.8 mg/dL (1.8-2.4); PHOSPHOROUS 3.2 mg/dL (2.5-4.9); POTASSIUM - SERUM 4.1 mmol/L (3.5-5.1); SODIUM 138 mmol/L (136-145); UREA NITROGEN 17 mg/dL (7-18); eGFR NON AFRICAN AMERICAN > 90 mL/min (90-120)
[2017-09-18 07:59] VITALS: BP 101/77
[2017-09-18 12:31] VITALS: BP 104/75
[2017-09-18 16:19] VITALS: BP 109/81
[2017-09-18 21:39] VITALS: BP 103/76
[2017-09-19 04:00] VITALS: BP 108/77
[2017-09-19 06:08] LABS: CALC OSMOLALITY 275 mosm/kg (275-300); CALCIUM 8.6 mg/dL (8.5-10.1); CARBON DIOXIDE 28.8 mmol/L (21.0-32.0); CHLORIDE - SERUM 103 mmol/L (98-107); CREATININE - SERUM 0.8 mg/dL (0.6-1.3); GLUCOSE 88 mg/dL (74-106); MAGNESIUM - SERUM 1.9 mg/dL (1.8-2.4); PHOSPHOROUS 3.2 mg/dL (2.5-4.9); POTASSIUM - SERUM 4.1 mmol/L (3.5-5.1); SODIUM 138 mmol/L (136-145); UREA NITROGEN 15 mg/dL (7-18); eGFR NON AFRICAN AMERICAN > 90 mL/min (90-120)
[2017-09-19 08:54] VITALS: BP 100/75
[2017-09-19 11:42] VITALS: BP 115/90
[2017-09-19 16:30] VITALS: BP 101/79
[2017-09-19 23:18] VITALS: BP 106/75
[2017-09-20 02:11] VITALS: BP 108/80
[2017-09-20 04:56] VITALS: BP 113/82
[2017-09-20 06:36] LABS: CALC OSMOLALITY 272 mosm/kg (275-300); CALCIUM 8.5 mg/dL (8.5-10.1); CARBON DIOXIDE 30.4 mmol/L (21.0-32.0); CHLORIDE - SERUM 102 mmol/L (98-107); CREATININE - SERUM 0.8 mg/dL (0.6-1.3); GLUCOSE 106 mg/dL (74-106); PHOSPHOROUS 3.2 mg/dL (2.5-4.9); POTASSIUM - SERUM 3.8 mmol/L (3.5-5.1); SODIUM 136 mmol/L (136-145); UREA NITROGEN 14 mg/dL (7-18); eGFR NON AFRICAN AMERICAN > 90 mL/min (90-120)
[2017-09-20 09:24] VITALS: BP 117/76
[2017-09-20 12:48] VITALS: BP 146/52
[2017-09-20 16:10] VITALS: BP 109/73
[2017-09-20 22:20] VITALS: BP 106/86
[2017-09-21 01:15] VITALS: BP 126/89
[2017-09-21 05:05] VITALS: BP 115/87
[2017-09-21 05:32] LABS: BASOPHILS 0.6 % (0-2); EOSINOPHILS 0.9 % (0-7); HEMATOCRIT 33.6 % (42.0-54.0); HEMOGLOBIN 10.8 g/dL (13.5-17.5); IMMATURE GRANULOCYTES 0.2 % (0-5); LYMPHOCYTES 14.1 % (15-50); MCHC 32.1 g/dL (31.0-37.0); MCV 99.4 fL (80.0-100.0); MEAN PLATELET VOLUME 11.2 fL (7.4-10.4); MONOCYTES 15.6 % (2-11); NEUTROPHILS 68.6 % (40-80); PLATELET COUNT 118 10x3/uL (130-400); RBC 3.38 10x6/uL (4.20-6.10); RDW 20.6 % (11.5-14.5); WBC 4.7 10x3/uL (4.8-10.8)
[2017-09-21 05:58] LABS: CALC OSMOLALITY 273 mosm/kg (275-300); CALCIUM 8.6 mg/dL (8.5-10.1); CARBON DIOXIDE 29.5 mmol/L (21.0-32.0); CHLORIDE - SERUM 103 mmol/L (98-107); CREATININE - SERUM 0.7 mg/dL (0.6-1.3); GLUCOSE 101 mg/dL (74-106); MAGNESIUM - SERUM 1.9 mg/dL (1.8-2.4); PHOSPHOROUS 3.8 mg/dL (2.5-4.9); POTASSIUM - SERUM 3.8 mmol/L (3.5-5.1); SODIUM 137 mmol/L (136-145); UREA NITROGEN 13 mg/dL (7-18); eGFR NON AFRICAN AMERICAN > 90 mL/min (90-120)
[2017-09-21 07:55] VITALS: BP 106/61
[2017-09-21 12:00] VITALS: BP 103/81
[2017-09-21 16:15] VITALS: BP 109/73
[2017-09-21 22:26] VITALS: BP 100/74
[2017-09-22 01:39] VITALS: BP 115/83
[2017-09-22 05:03] LABS: BASOPHILS 0.8 % (0-2); EOSINOPHILS 0.8 % (0-7); HEMATOCRIT 34.7 % (42.0-54.0); HEMOGLOBIN 11.2 g/dL (13.5-17.5); IMMATURE GRANULOCYTES 0.2 % (0-5); LYMPHOCYTES 13.9 % (15-50); MCH 32.2 pg (26.0-34.0); MCHC 32.3 g/dL (31.0-37.0); MCV 99.7 fL (80.0-100.0); MEAN PLATELET VOLUME 9.9 fL (7.4-10.4); MONOCYTES 15.3 % (2-11); PLATELET COUNT 106 10x3/uL (130-400); RBC 3.48 10x6/uL (4.20-6.10); RDW 20.8 % (11.5-14.5); WBC 5.1 10x3/uL (4.8-10.8)
[2017-09-22 05:15] VITALS: BP 114/86
[2017-09-22 05:37] LABS: CALC OSMOLALITY 274 mosm/kg (275-300); CALCIUM 8.5 mg/dL (8.5-10.1); CARBON DIOXIDE 27.6 mmol/L (21.0-32.0); CHLORIDE - SERUM 103 mmol/L (98-107); CREATININE - SERUM 0.7 mg/dL (0.6-1.3); GLUCOSE 101 mg/dL (74-106); MAGNESIUM - SERUM 1.9 mg/dL (1.8-2.4); PHOSPHOROUS 4.2 mg/dL (2.5-4.9); SODIUM 137 mmol/L (136-145); UREA NITROGEN 14 mg/dL (7-18); eGFR NON AFRICAN AMERICAN > 90 mL/min (90-120)
[2017-09-22 08:37] LABS: INR 1.03 (0.85-1.17); PROTIME 13.1 SECONDS (11.6-15.0)
[2017-09-22 11:47] VITALS: BP 109/82
[2017-09-22 22:21] VITALS: BP 106/75
[2017-09-23 00:56] VITALS: BP 94/52
[2017-09-23 05:20] VITALS: BP 103/70
[2017-09-23 05:58] LABS: BASOPHILS 0.7 % (0-2); EOSINOPHILS 1.1 % (0-7); HEMATOCRIT 30.9 % (42.0-54.0); IMMATURE GRANULOCYTES 0.4 % (0-5); LYMPHOCYTES 10.9 % (15-50); MCH 32.3 pg (26.0-34.0); MCHC 32.4 g/dL (31.0-37.0); MCV 99.7 fL (80.0-100.0); MEAN PLATELET VOLUME 10.4 fL (7.4-10.4); MONOCYTES 16.9 % (2-11); PLATELET COUNT 104 10x3/uL (130-400); RDW 20.7 % (11.5-14.5); WBC 5.7 10x3/uL (4.8-10.8)
[2017-09-23 08:59] VITALS: BP 115/78
[2017-09-23 17:13] VITALS: BP 105/76
[2017-09-23 22:12] VITALS: BP 105/78
[2017-09-24 01:36] VITALS: BP 112/74
[2017-09-24 04:46] VITALS: BP 124/74
[2017-09-24] MEDS ORDERED: ALDACTONE25 MG PO (07:36)
[2017-09-24] MEDS ORDERED: LASIX20 MG PO (07:37)
[2017-09-24 10:33] VITALS: BP 109/82
[2017-09-24 11:35] VITALS: BP 110/80
== END 2017-09-24 14:13 | disposition home health service (06) | DRG 393 ==
LOC: D.MS 15:15
PROVIDERS: Internal Medicine Hematology & Oncology; Radiology Diagnostic Radiology; Surgery
PROC: 0W9G3ZZ Drainage of Peritoneal Cavity, Percutaneous Approach (ICD-10-PCS; principal; 2017-09-15 15:00)
PROC: 0D9670Z Drainage of Stomach with Drainage Device, Via Natural or Artificial Opening (ICD-10-PCS; 2017-09-16)
PROC: 0W9G3ZZ Drainage of Peritoneal Cavity, Percutaneous Approach (ICD-10-PCS; 2017-09-22)
DX: K52.1 Toxic gastroenteritis and colitis (principal); D61.810 Antineoplastic chemotherapy induced pancytopenia; C18.9 Malignant neoplasm of colon, unspecified; Z68.1 Body mass index [BMI] 19.9 or less, adult; K56.7 Ileus, unspecified; R18.8 Other ascites; C78.7 Secondary malignant neoplasm of liver and intrahepatic bile duct; K56.609 Unspecified intestinal obstruction, unspecified as to partial versus complete obstruction; T45.1X5A Adverse effect of antineoplastic and immunosuppressive drugs, initial encounter; R63.4 Abnormal weight loss; E86.0 Dehydration; Z66 Do not resuscitate

== ENCOUNTER 2017-12-17 07:21 | Outpatient (CLI) | payer MEDICARE ==
[~2017-12-17] VITALS: Ht 177.8 cm; Wt 64.1 kg
--- NOTE | ~2017-12-17 | HEMODYNAMI ---
PATIENT:YOKASTA MEJIA JR MEDICAL RECORD: [id number] : 46 LOCATION:[facility] ADMISSION DATE: 12/17/17 Generatedon:12/17/201711:41 Patient name: YOKASTA MEJIA Patient #: [id number] SSN: : 1950 Date of study: 12/17/2017 Page: Of Hemodynamic Procedure Report Patient Data Patient Demographics Procedure consent was obtained First Name: YOKASTA Gender: Male Last Name: ROBERTO Suffix: Jr Murray Initial: Arabella : 1950 Patient #: [id number] Age: 67 year(s) Race: Unknown Additional ID: [id number] Contact details Address: [place] [address] State: [place] City: [place] Zip code: [address] Admission Admission Data Admission Date: 12/17/2017 Admission Time: 7:21 Procedure Procedure Types Cath Procedure Peripheral Cath Diagnostic Procedure Miscellaneous Pleurex Pleurex Cath Place w/ Imaging Procedure Description Procedure Date Procedure Date: 12/17/2017 Procedure Start Time: 11:05 Procedure Staff Name Function Jonh Guzman MD Performing Physician Peter Sprague RT Monitor Robyn Duran RT Scrub April Fernandes RN Nurse Procedure Data Cath Procedure Fluoroscopy Diagnostic fluoroscopy Total fluoroscopy Time: 1 time: 1 min min Diagnostic fluoroscopy Total fluoroscopy dose: 29 dose: 29 mGy mGy Contrast Material Contrast Material Type Amount (ml) Isovue 300 10 Procedure Medications Medication Administration Route Dosage Versed I.V. 1 mg Fentanyl I.V. 25 mcg Lidocaine 1% added to field 20 Heparin Flush Bag added to field 1 bags (1000units/500ml NS) Oxygen etCO2 Nasal cannula 4 l/min Rocephin I.V. 1 g Fentanyl I.V. 25 mcg Hemodynamics Rest Heart Rate: 70 (bpm) Snapshots Pre Cath Intra NCS Post Cath Vital Signs Time Heart Resp SPO2 etCO2 NIBP Rhythm Pain Status Sedation Rate (ipm) (%) (mmHg) (mmHg) Level (bpm) 10:48:01 90 0 99 24.1 108/79(88) NSR 0 (11) , No 10(A) pain 10:51:54 73 17 99 25.6 113/88(99) NSR 0 (11) , No 10(A) pain 10:55:47 70 20 99 23.3 112/88(97) NSR 0 (11) , No 10(A) pain 10:59:43 71 19 99 24.1 120/84(99) NSR 0 (11) , No 10(A) pain 11:03:55 68 18 99 25.6 86/42(77) NSR 0 (11) , No 10(A) pain 11:06:29 69 19 98 25.6 110/86(96) NSR 0 (11) , No 10(A) pain 11:10:24 67 15 98 27.9 108/84(94) NSR 0 (11) , No 8(A) pain 11:14:20 65 10 99 26.3 110/81(90) NSR 2 (11) , 8(A) Uncomfortable 11:18:15 67 11 99 30.1 105/78(89) NSR 0 (11) , No 8(A) pain 11:22:31 71 13 98 28.6 102/77(89) NSR 0 (11) , No 8(A) pain 11:26:25 67 11 30.1 108/77(89) NSR 0 (11) , No 8(A) pain 11:30:22 67 12 29.4 100/76(88) NSR 0 (11) , No 8(A) pain 11:34:14 70 14 97 27.1 106/78(96) NSR 0 (11) , No 8(A) pain 11:38:07 67 12 27.8 107/84(95) NSR 0 (11) , No 8(A) pain Medications Time Medication Route Dose Verified Delivered Reason Notes Effe ctiveness by by 11:09:49 Versed I.V. 1 mg Dom Barr RN sedation intermittently MD @ 11:14:28 11:10:01 Fentanyl I.V. 25 mcg Dom Barr RN sedation intermittently MD @ 11:14:31 11:10:15 Lidocaine 1% added 20ml Jonh Borja Per to vial Thomas Guzman MD protocol field TENA 11:10:31 Heparin Flush added 1 bags Jonh Weiss Bag to Thomas Guzman MD protocol (1000units/500ml field TENA NS) 11:10:49 Oxygen etCO2 4l/min Jonh April Per Nasal Dom Guzman RN protocol cannula 11:11:06 Rocephin I.V. 1 g Jonh Hodgesine Per Dom Guzman RN protocol 11:14:23 Fentanyl I.V. 25 mcg Jonh Hodgesine for Most ly Dom Guzman RN sedation sleeping @ 11:22:44 Procedure Log Time Note 10:36:56 Peter Leonardbrandin RT (R) (CV) sent for patient. Start room use. 10:37:18 Time tracking: Regular hours (M-F 7:00 - 5:00) 10:37:23 Plan of Care:Hemodynamics will remain stable., Cardiac rhythm will remain stable., Comfort level will be maintained., Respiratory function will remain adequate., Patient/ family verbilizes understanding of procedure., Procedure tolerated without complication., Recovers from procedure without complications.. 10:37:30 Patient received from Outpatients to IR Alert and oriented. Tansferred to table in Supine position. 10:37:31 Correct patient and procedure confirmed by team. 10:37:33 Signed procedure consent form obtained from patient. 10:37:35 ECG and BP/O2 sat monitors applied to patient. 10:37:36 Full Disclosure recording started 10:38:52 - 10:38:56 H&P Date Dictated: 12/17/2017 H&P Addendum completed by physician on day of procedure. (MUST COMPLETE FOR ALL OUTPATIENTS). 10:38:57 Pre-procedure instructions explained to patient. 10:38:57 Pre-op teaching completed and patient verbalized understanding. 10:38:58 Family in waiting room. 10:39:04 Patient NPO since Midnight. 10:39:08 Is the patient allergic to Iodine/contrast media? No. 10:39:11 Is patient on blood thinner?No 10:39:12 Patient diabetic? No. 10:39:13 - 10:39:15 ----Pre-sedation anethsthesia assessment.---- 10:39:18 Previous problem with sedation/anesthesia? No ? 10:39:19 Snore? No 10:39:21 Sleep apnea? No 10:39:22 Deviated septum? No 10:39:23 Opens mouth fully? Yes 10:39:25 Sticks out tongue? Yes 10:39:28 Airway obstruction? No ? 10:39:30 Dentures? No ? 10:39:37 Patient pain scale 0/10 no pain. 10:39:42 Sharps counted by scrub and verified by R.N. 10:39:43 Alarms reviewed by R. N. 10:39:45 Right abdomen area was prepped with chlora-prep and draped in sterile fashion 10:40:09 IV patent on arrival in port with 0.9% NaCl at KVO. 10:40:15 Use device set IR Diagnostic 10:40:17 Bag Decanter (2002S) opened to sterile field. 10:40:18 Sterile Angiographic Pack opened to sterile field. 10:47:03 Vital chart was started 11:03:24 Physician arrived 11:03:28 --------ALL STOP TIME OUT------ 11:03:28 Final Timeout: patient, procedure, and site verified with staff and physician. All members of the team are in agreement. 11:03:33 Right abdomen site verified by team. 11:03:38 Sedation plan: IV Moderate Sedation Medication:Versed, Fentanyl 11:05:26 Procedure started. 11:05:33 Local anesthetic to Abdominal area with Lidocaine 1% by Jonh Guzman MD.INITIAL ACCESS ONLY 11:09:47 Baseline sample Acquired. 11:09:49 Versed 1 mg I.V. was administered by April Dom RN; for sedation; 11:10:01 Fentanyl 25 mcg I.V. was administered by April Fernandes RN; for sedation; 11:10:15 Lidocaine 1% 20ml vial added to field was administered by Jonh Guzman MD; Per protocol; 11:10:31 Heparin Flush Bag (1000units/500ml NS) 1 bags added to field was administered by Jonh Guzman MD; Per protocol; 11:10:49 Oxygen 4l/min etCO2 Nasal cannula was administered by April Fernandes RN; Per protocol; 11:11:06 Rocephin 1 g I.V. was administered by April Fernandes RN; Per protocol ; 11:12:08 AMPLATZ Super Stiff 75cm wire ([id number]) opened to sterile field. 11:12:10 Dermabond Pen opened to sterile field. 11:12:14 PLEURX PERITON drainage catheter ([id number]) opened to sterile field. 11:14:11 Micropuncture VSI 4FR kit opened to sterile field. 11:14:23 Fentanyl 25 mcg I.V. was administered by April Fernandes RN; for sedation; 11:14:28 Effectiveness of Versed delivered @ 11:09:49 is: Dozing intermittently 11:14:31 Effectiveness of Fentanyl delivered @ 11:10:01 is: Dozing intermittentl y 11:17:25 3-0 Vicryl Single Pack [id number] opened to sterile field. 11:22:44 Effectiveness of Fentanyl delivered @ 11:14:23 is: Mostly sleeping 11:32:44 Procedure ended.(Physican Out) 11:38:34 Fluoroscopy time 01.00 minutes. 11:38:39 Fluoroscopy dose: 29 mGy 11:38:39 Flurop Dose total: 29 11:38:44 Contrast amount:Isovue 300 10ml. 11:38:45 Sharps counted by scrub and verified by R.N. 11:38:48 Insertion/operative site no bleeding no hematoma. 11:39:06 Post-op/insertion site Right Abdominal area dressed using a 4 x 4 and Tegaderm. 11:39:13 Post Abdominal area:stable 11:40:01 Post procedure instruction explained to patient.Patient verbalizes understanding. 11:40:02 Procedure and supply charges have been captured, reviewed, submitted an d are correct. 11:40:18 Report given to Outpatients. 11:40:23 Patient transfered to Outpatients with Stretcher. 11:41:19 Vital chart was stopped Device Usage Item Name Manufacture Quantity Catalog Hospital Part Current [facility] l Lot# / Number Charge Number Stock Stock Serial# Code Bag Decanter Microtek 1 [id number] 5 () [employer] Sterile Cardinal 1 [id number] 5 Angiographic Health Pack AMPLATZ Super [place] 1 [id number] [id number] 5 [id number] Stiff 75cm Scientific wire ([id number]) Dermabond Pen Ethicon 1 [id number] 895655 [id number] 5 PLEURX CareFusion 1 [id number] [id number] 170240 5 PERITON drainage catheter ([id number]) Micropuncture VSI VASCULAR 1 [id number] 170974 335558 5 VSI 4FR kit SOLUTIONS 3-0 Vicryl Ethicon 1 [id number] 040585 701773 5 Single Pack [id number] Signature Audit Miranda Stage Time Signature Unsigned Intra-Procedure 12/17/2017 Peter 11:41:16 AM Celestine RT (R) (CV) Signatures Monitor : Peter Signature : Celestine RT Date : Time : [id number] [place] [address]
[~2017-12-17 07:21] MED LIST changes: +ALDACTONE25 MG PO; +LASIX20 MG PO; +MEGACE400 MG/10 PO
[2017-12-17 09:23] VITALS: BP 105/82; Ht 177.8 cm; Wt 64.1 kg
[2017-12-17 10:00] LABS: BASOPHILS 0.1 % (0-2); EOSINOPHILS 0.4 % (0-7); HEMATOCRIT 30.7 % (42.0-54.0); HEMOGLOBIN 10.5 g/dL (13.5-17.5); IMMATURE GRANULOCYTES 0.3 % (0-5); LYMPHOCYTES 6.9 % (15-50); MCH 34.2 pg (26.0-34.0); MCHC 34.2 g/dL (31.0-37.0); MEAN PLATELET VOLUME 9.9 fL (7.4-10.4); MONOCYTES 14.9 % (2-11); NEUTROPHILS 77.4 % (40-80); RBC 3.07 10x6/uL (4.20-6.10); RDW 24.1 % (11.5-14.5); WBC 7.3 10x3/uL (4.8-10.8)
[2017-12-17 10:02] LABS: PLATELET COUNT 164 10x3/uL (130-400)
[2017-12-17 10:09] LABS: INR 1.19 (0.85-1.17); PROTIME 14.7 SECONDS (11.6-15.0)
[2017-12-17 10:10] LABS: APTT 71.4 SECONDS (22.8-39.4)
[2017-12-17 10:20] LABS: CALC OSMOLALITY 269 mosm/kg (275-300); CALCIUM 8.8 mg/dL (8.5-10.1); CARBON DIOXIDE 26.6 mmol/L (21.0-32.0); CHLORIDE - SERUM 100 mmol/L (98-107); CREATININE - SERUM 0.7 mg/dL (0.6-1.3); GLUCOSE 94 mg/dL (74-106); POTASSIUM - SERUM 3.5 mmol/L (3.5-5.1); SODIUM 135 mmol/L (136-145); UREA NITROGEN 12 mg/dL (7-18); eGFR NON AFRICAN AMERICAN > 90 mL/min (90-120)
== END 2017-12-17 15:35 | disposition home or self-care (01) ==
LOC: D.SP 07:21 → D.RAD 10:00 → D.SP 10:00
PROVIDERS: General Practice
DX: C19 Malignant neoplasm of rectosigmoid junction (principal); H91.93 Unspecified hearing loss, bilateral; R18.8 Other ascites; Z01.812 Encounter for preprocedural laboratory examination